=== PATIENT | male | born 1940 | race Caucasian/White ===

== ENCOUNTER 2019-11-30 09:58 | Day surgery (SDC) | payer BC ==
[~2019-11-30] VITALS: Ht 170.2 cm; Wt 81.8 kg
[2019-11-30 10:35] VITALS: BP 105/75
[2019-11-30] MEDS ORDERED: OMEP-110 PO (10:39)
[2019-11-30] MEDS ORDERED: FURO-92 PO (10:39)
[2019-11-30] MEDS ORDERED: POTA20TA14 PO (10:39)
[2019-11-30] MEDS ORDERED: CARV10CP PO (10:39)
[2019-11-30] MEDS ORDERED: LISI-467 PO (10:40)
[2019-11-30] MEDS ORDERED: ATOR10TA9 PO (10:40)
[2019-11-30] MEDS ORDERED: TICAGRELOR 90 MG TABLET ONE (11:41)
[2019-11-30] MEDS ORDERED: MIDAZOLAM 1 MG/ML, 5ML ONE (11:41)
[2019-11-30] MEDS ORDERED: FENTANYL PF 100 MCG/2ML ONE (11:41)
[2019-11-30] MEDS ORDERED: HEPARIN 1,000 UNITS/ML, 10ML ONE (11:41)
[2019-11-30] MEDS ORDERED: LIDOCAINE 2%, 20ML ONE (11:41)
[2019-11-30] MEDS ORDERED: VERAPAMIL 2.5 MG/ML, 2ML ONE (11:41)
[2019-11-30] MEDS ORDERED: BIVALIRUDIN 250 MG ONE (11:41)
[2019-11-30] MEDS ORDERED: SODIUM CHLORIDE 0.9% 1,000 ML IV SCH (13:10)
== END 2019-11-30 15:51 | disposition home or self-care (01) ==
LOC: CACL 09:58
PROVIDERS: ATTEND Internal Medicine Cardiovascular Disease
DX: I35.0 Nonrheumatic aortic (valve) stenosis (principal); I25.119 Atherosclerotic heart disease of native coronary artery with unspecified angina pectoris; I11.0 Hypertensive heart disease with heart failure; I50.9 Heart failure, unspecified; I25.5 Ischemic cardiomyopathy; K21.9 Gastro-esophageal reflux disease without esophagitis; E78.5 Hyperlipidemia, unspecified; E66.3 Overweight; Z68.26 Body mass index [BMI] 26.0-26.9, adult; Z79.899 Other long term (current) drug therapy; Z88.8 Allergy status to other drugs, medicaments and biological substances; Z95.1 Presence of aortocoronary bypass graft; Z83.6 Family history of other diseases of the respiratory system; Z80.9 Family history of malignant neoplasm, unspecified
CPT/HCPCS: 93459; 99156; 99157; C1760; C1769; C1894; J0583; J1644; J2250; J3010; Q9967

== ENCOUNTER 2019-12-11 09:41 | Outpatient (CLI) | payer BC ==
[~2019-12-11 09:41] MED LIST: ATOR10TA9 PO; CARV10CP PO; FURO-92 PO; LISI-467 PO; OMEP-110 PO; POTA20TA14 PO
[2019-12-11] MEDS ORDERED: METOPROLOL 1 MG/ML, 5ML ONE (10:42)
[2019-12-11] MEDS ORDERED: VISIPAQUE 320 MG/ML, 150ML BOTTLE ONE (11:06)
== END 2019-12-11 23:59 | disposition home or self-care (01) ==
LOC: RAD 09:41
PROVIDERS: ATTEND Internal Medicine Cardiovascular Disease
DX: Z01.810 Encounter for preprocedural cardiovascular examination (principal); I35.0 Nonrheumatic aortic (valve) stenosis; Z88.8 Allergy status to other drugs, medicaments and biological substances
CPT/HCPCS: 71275; 74174; 93880; 94010; 94726; 94729; Q9967

== ENCOUNTER 2019-12-18 07:58 | Inpatient (IN) | payer MEDICARE, BC ==
[~2019-12-18] VITALS: Ht 170.2 cm; Wt 84.5 kg
[2019-12-18] MEDS ORDERED: SODIUM CHLORIDE 0.9% 1,000 ML IV ONE (08:44)
[2019-12-18 08:59] VITALS: BP 110/79
[2019-12-18] MEDS ORDERED: ONDANSETRON 2MG/ML, 2ML IVPush PRN ×2 (09:00→12:30)
[2019-12-18] MEDS ORDERED: CHLORHEXIDINE 15 ML UDC MM PRN (09:00)
[2019-12-18 09:18] LABS: BASOPHILS # (AUTO) 0.04 x10^3/uL (0-0.1); BASOPHILS % (AUTO) 1 % (0-1); EOSINOPHILS # (AUTO) 0.08 x10^3/uL (0-0.4); EOSINOPHILS % (AUTO) 1 % (1-7); LYMPHOCYTES # (AUTO) 1.07 x10^3/uL (1-3.4); LYMPHOCYTES % (AUTO) 14 % (22-44); MD NO; MEAN CORPUSCULAR HEMOGLOBIN 29.4 pg (27.5-34.5); MEAN CORPUSCULAR HGB CONC 32.8 g/dL (33.2-36.2); MEAN CORPUSCULAR VOLUME 89.6 fL (81-97); MEAN PLATELET VOLUME 9.1 fL (7.4-10.4); MONOCYTES # (AUTO) 0.41 x10^3/uL (0.2-0.8); MONOCYTES % (AUTO) 6 % (2-9); NEUTROPHILS % (AUTO) 78 % (42-75); PLATELET COUNT 140 x10^3/uL (130-400); RED BLOOD COUNT 5.02 x10^6/uL (4.38-5.82); RED CELL DISTRIBUTION WIDTH 14.8 % (9.4-14.8)
[2019-12-18 09:28] LABS: INTERNATIONAL NORMALIZED RATIO 0.97 (0.93-1.1); PROTHROMBIN TIME 10.3 Seconds (9.6-11.5)
[2019-12-18 09:31] LABS: ALANINE AMINOTRANSFERASE 20 U/L (12-78); ALBUMIN 3.7 g/dL (3.4-5.0); ANION GAP 7 mmol/L (5-15); CALCIUM 9.5 mg/dL (8.5-10.1); CHLORIDE 108 mmol/L (98-107)
[2019-12-18 09:35] LABS: ALKALINE PHOSPHATASE 77 U/L (45-117); BILIRUBIN,TOTAL 0.6 mg/dL (0.2-1.0); CREATININE 1.26 mg/dL (0.7-1.3); TOTAL PROTEIN 6.8 g/dL (6.4-8.2)
[2019-12-18] MEDS ORDERED: FENTANYL PF 250 MCG/5ML ONE (10:51)
[2019-12-18] MEDS ORDERED: PROPOFOL 10 MG/ML, 20ML ONE (10:54)
[2019-12-18] MEDS ORDERED: CEFAZOLIN 1,000 MG ONE ×2 (10:54→12:04)
[2019-12-18] MEDS ORDERED: ONDANSETRON 2MG/ML, 2ML ONE (10:54)
[2019-12-18] MEDS ORDERED: DEXAMETHASONE 4 MG/ML, 1ML ONE (10:54)
[2019-12-18] MEDS ORDERED: PHENYLEPHRINE 10 MG/ML ONE (10:54)
[2019-12-18] MEDS ORDERED: ROCURONIUM 10 MG/ML,10ML ONE (10:54)
[2019-12-18] MEDS ORDERED: SUCCINYLCHOLINE 20 MG/ML, 10ML ONE (10:54)
[2019-12-18] MEDS ORDERED: HEPARIN 1,000 UNITS/ML, 30ML ONE (11:17)
[2019-12-18] MEDS ORDERED: PROTAMINE SULFATE 10 MG/ML, 25ML ONE (11:41)
[2019-12-18] MEDS ORDERED: LIDOCAINE 1%, 20ML ONE (12:09)
[2019-12-18] MEDS: CARVEDILOL PHOSPHATE 10 MG HOMEMEDPO SCH (12:30)
[2019-12-18] MEDS ORDERED: ACETAMINOPHEN 325 MG TABLET PO PRN (12:30)
[2019-12-18] MEDS: ASPIRIN 81 MG TABLET EC PO SCH (12:30)
[2019-12-18] MEDS ORDERED: LABETALOL 20 MG/4 ML IVPush PRN (12:30)
[2019-12-18] MEDS ORDERED: hydrALAzine 20 MG/ML, 1ML IVPush PRN (12:30)
[2019-12-18] MEDS ORDERED: HYDROcodone/APAP 5/325 TABLET PO PRN (12:30)
[2019-12-18] MEDS ORDERED: HOLD MEDICATION MC PRN (12:30)
[2019-12-18 14:00] VITALS: BP 107/62
[2019-12-18] MEDS: FUROSEMIDE 40 MG TABLET PO SCH (15:14)
[2019-12-18] MEDS: CLOPIDOGREL 75 MG TABLET PO SCH (17:35)
[2019-12-18 20:38] VITALS: BP 96/60
[2019-12-18] MEDS: POTASSIUM CHLORIDE 20 MEQ TAB.ER.PRT PO SCH (20:52)
[2019-12-18] MEDS: CEFAZOLIN PMX 1GM/50ML 50 ML IVPB SCH (20:52)
[2019-12-18] MEDS ORDERED: ATORVASTATIN 10 MG TABLET PO SCH (21:00)
[2019-12-18] MEDS ORDERED: LISINOPRIL 20 MG TABLET PO SCH (21:00)
[2019-12-18] MEDS ORDERED: LISINOPRIL 10 MG TABLET PO SCH (21:10)
[2019-12-19 02:24] VITALS: BP 114/70
[2019-12-19] MEDS: CEFAZOLIN PMX 1GM/50ML 50 ML IVPB SCH (04:39)
[2019-12-19 04:55] LABS: ANION GAP 3 mmol/L (5-15); CHLORIDE 106 mmol/L (98-107)
[2019-12-19 04:57] LABS: CREATININE 1.17 mg/dL (0.7-1.3)
[2019-12-19 04:57] LABS: BASOPHILS # (AUTO) 0.01 x10^3/uL (0-0.1); BASOPHILS % (AUTO) 0 % (0-1); EOSINOPHILS % (AUTO) 0 % (1-7); LYMPHOCYTES # (AUTO) 0.97 x10^3/uL (1-3.4); LYMPHOCYTES % (AUTO) 11 % (22-44); MD NO; MEAN CORPUSCULAR HEMOGLOBIN 29.5 pg (27.5-34.5); MEAN CORPUSCULAR HGB CONC 32.9 g/dL (33.2-36.2); MEAN CORPUSCULAR VOLUME 89.6 fL (81-97); MEAN PLATELET VOLUME 9.9 fL (7.4-10.4); MONOCYTES # (AUTO) 0.65 x10^3/uL (0.2-0.8); MONOCYTES % (AUTO) 7 % (2-9); NEUTROPHILS # (AUTO) 7.47 x10^3/uL (1.8-6.8); NEUTROPHILS % (AUTO) 82 % (42-75); PLATELET COUNT 110 x10^3/uL (130-400); RED BLOOD COUNT 4.61 x10^6/uL (4.38-5.82); RED CELL DISTRIBUTION WIDTH 15.3 % (9.4-14.8)
[2019-12-19] MEDS: ASPIRIN 81 MG TABLET EC PO SCH (08:33)
[2019-12-19] MEDS: POTASSIUM CHLORIDE 20 MEQ TAB.ER.PRT PO SCH (08:33)
[2019-12-19] MEDS: CLOPIDOGREL 75 MG TABLET PO SCH (08:33)
[2019-12-19] MEDS: FUROSEMIDE 40 MG TABLET PO SCH (08:34)
[2019-12-19] MEDS: CARVEDILOL PHOSPHATE 10 MG HOMEMEDPO SCH (08:44)
[2019-12-19] MEDS ORDERED: OMEPRAZOLE 20 MG CAPSULE.DR PO SCH (09:00)
[2019-12-19] MEDS ORDERED: CLOP75TA PO (12:26)
[2019-12-19] MEDS ORDERED: ASPI81TA45 PO (12:26)
== END 2019-12-19 15:58 | disposition home or self-care (01) | DRG 266 ==
LOC: ORIP 07:58 → CSU 12:53 → 5SO 17:22 → DCLOUNGE 12-19 15:30
PROVIDERS: ADMIT Internal Medicine Cardiovascular Disease; ATTEND Internal Medicine Cardiovascular Disease
PROC: B24BZZ4 Ultrasonography of Heart with Aorta, Transesophageal (ICD-10-PCS; 2019-12-18)
PROC: B41DYZZ Fluoroscopy of Aorta and Bilateral Lower Extremity Arteries using Other Contrast (ICD-10-PCS; 2019-12-18)
PROC: 03HY32Z Insertion of Monitoring Device into Upper Artery, Percutaneous Approach (ICD-10-PCS; 2019-12-18)
PROC: 0JH606Z Insertion of Pacemaker, Dual Chamber into Chest Subcutaneous Tissue and Fascia, Open Approach (ICD-10-PCS; 2019-12-18)
PROC: 02H63JZ Insertion of Pacemaker Lead into Right Atrium, Percutaneous Approach (ICD-10-PCS; 2019-12-18)
PROC: 02HK3JZ Insertion of Pacemaker Lead into Right Ventricle, Percutaneous Approach (ICD-10-PCS; 2019-12-18)
PROC: 02RF38Z Replacement of Aortic Valve with Zooplastic Tissue, Percutaneous Approach (ICD-10-PCS; principal; 2019-12-18 12:00)
DX: I35.0 Nonrheumatic aortic (valve) stenosis (principal); Z00.6 Encounter for examination for normal comparison and control in clinical research program; I50.43 Acute on chronic combined systolic (congestive) and diastolic (congestive) heart failure; I97.191 Other postprocedural cardiac functional disturbances following other surgery; I44.2 Atrioventricular block, complete; Y83.2 Surgical operation with anastomosis, bypass or graft as the cause of abnormal reaction of the patient, or of later complication, without mention of misadventure at the time of the procedure; Y71.2 Prosthetic and other implants, materials and accessory cardiovascular devices associated with adverse incidents; Y92.239 Unspecified place in hospital as the place of occurrence of the external cause; E78.5 Hyperlipidemia, unspecified; I11.0 Hypertensive heart disease with heart failure; I25.10 Atherosclerotic heart disease of native coronary artery without angina pectoris; I25.5 Ischemic cardiomyopathy; K21.9 Gastro-esophageal reflux disease without esophagitis; Z95.1 Presence of aortocoronary bypass graft; Z88.8 Allergy status to other drugs, medicaments and biological substances
CPT/HCPCS: 33208; 33361; 36415; 71045; 80048; 80053; 83880; 85025; 85347; 85610; 86850; 86900; 86923; 93005; 93306; 93312; 93321; 93325; 93355; 93356; C1760; C1769; C1779; C1785; C1892; C1894; G0378; J0690; J1100; J1644; J2405; J2704; J2720; J3010; J0330; J2370; J7030; Q9967

== ENCOUNTER 2020-01-15 12:11 | Outpatient (CLI) | payer MEDICARE, BC ==
[~2020-01-15 12:11] MED LIST changes: +ASPI81TA45 PO; +CLOP75TA PO
== END 2020-01-15 23:59 | disposition home or self-care (01) ==
LOC: CVU 12:11
PROVIDERS: ATTEND Internal Medicine Cardiovascular Disease
DX: I35.0 Nonrheumatic aortic (valve) stenosis (principal); I51.7 Cardiomegaly; I65.29 Occlusion and stenosis of unspecified carotid artery; R06.02 Shortness of breath; Z95.1 Presence of aortocoronary bypass graft; Z95.2 Presence of prosthetic heart valve
CPT/HCPCS: 93306; 93356

== ENCOUNTER → 2020-12-16 | Outpatient (CLI) | payer BC, MEDICARE | END | disposition home or self-care (01) | LOC: CVU 13:21 | PROVIDERS: ATTEND Internal Medicine Cardiovascular Disease | DX: Z01.810 Encounter for preprocedural cardiovascular examination (principal); I36.1 Nonrheumatic tricuspid (valve) insufficiency; R06.02 Shortness of breath; I65.29 Occlusion and stenosis of unspecified carotid artery | CPT/HCPCS: 93306 ==